=== PATIENT | female | born 1995 | race African-American/Black ===

== ENCOUNTER → 2016-12-30 | Outpatient (CLI) | payer OTHER ==
[~2016-12-30] MED LIST: PYRI25TA2 PO; ZOFR4TAB3 SL
== END ==
LOC: HPND 12:47
PROVIDERS: ATTEND Family Medicine
DX: Z34.90 Encounter for supervision of normal pregnancy, unspecified, unspecified trimester (principal)
CPT/HCPCS: 76801

== ENCOUNTER → 2017-02-04 | Outpatient (CLI) | payer OTHER | LOC: HPND 10:55 | PROVIDERS: ATTEND Family Medicine | DX: Z36 Encounter for antenatal screening of mother (principal) | CPT/HCPCS: 36415; 76813 ==